=== PATIENT | male | born 1985 | race Caucasian/White ===

== ENCOUNTER 2024-12-22 13:29 | Emergency (ER) | payer BC ==
[~2024-12-22] VITALS: Ht 175.3 cm; Wt 95.2 kg
[2024-12-22] MEDS: dexamethasone sod phosphate 10mg/ml inj PO STA (15:25)
[2024-12-22] MEDS: ipratropium/albuterol 3ml nebule NEB STA (15:36)
[2024-12-22 15:41] VITALS: PULSE 86; RESP 14
[2024-12-22 15:55] VITALS: PULSE 102; RESP 16; O2SAT 100
[2024-12-22] MEDS ORDERED: PRED20TA PO (16:07)
[2024-12-22 16:11] VITALS: BP 127/98; PULSE 92; RESP 16; TEMP 98.8; O2SAT 98
== END 2024-12-22 16:17 | disposition home or self-care (01) ==
LOC: ER 13:30
DX: J45.901 Unspecified asthma with (acute) exacerbation (principal); Z88.1 Allergy status to other antibiotic agents
CPT/HCPCS: 71045; 94640; 99283; J1100; 94760